=== PATIENT | female | born 1995 | race Hispanic/Latino ===

== ENCOUNTER 2016-07-28 08:44 | Emergency (ER) | payer OTHER ==
[~2016-07-28] VITALS: Ht 160 cm; Wt 59.5 kg
[2016-07-28 08:47] VITALS: BP 113/67; PULSE 89; RESP 18; O2SAT 100
--- NOTE | 2016-07-28 09:01 | ED.REPORT ---
HPI-General Illness Date of Service Jul 28, 2016 ED Provider: MD Stephen This is a 21 year old female presenting to the ED complaining of cold symptoms that began 2 weeks ago. Reports rhinorrhea, nasal congestion, and cough. Cough resolved, however, 5 days ago she developed generalized myalgias, severe sore throat, headache, and intermittent fever. Denies diarrhea, dysuria, abdominal pain, or vomiting. Father recently tested positive for influenza, sister recently treated for strep throat. Nursing Notes Stated Complaint: HEADACHE,ABD PAIN,SWOLLEN TONSILS Chief Complaint: FLU/Cold Symptoms Nursing Notes Reviewed: Yes Allergies: Coded Allergies: No Known Allergies (Verified Allergy, Unknown, 10/17/15) General Time Seen by MD: 09:01 Chief Complaint Not feeling well Hx Obtained From: Patient Arrived By: Walk-in Sudden in Onset?: Yes Onset Occurred: More than a week ago... (2 weeks) Symptom Duration: Since onset Severity: Current: No pain currently Pertinent Negative: Pt denies other symptoms Recent Healthcare: No recent doctor visit, No recent hospitalization Similar Sx Previous: No Past Medical History Past Medical History None Past Surgical History None Smoking History Never Smoker Social History Alcohol Use: "Social" Drug Use: THC Ambulatory Status Independent Review of Systems Full Review of Systems Constitutional: Reports: Chills, Fever Ears / Nose / Throat: Reports: Sore throat Respiratory: Denies: Non-productive cough, Shortness of breath GI: Denies: Abdominal pain, Constipation, Diarrhea, Nausea, Vomiting Neurologic: Reports: Headache Complete sys rev & neg: except as marked. Physical Exam Vital Signs Vital Signs Date Time Temp Pulse Resp B/P Pulse Ox O2 Delivery O2 Flow Rate FiO2 07/28/16 08:47 38.1 89 18 113/67 100 Room Air Initial VS: Reviewed General/Constitutional: Well-developed, Well-nourished Head / Eyes: Atraumatic, Normocephalic, PERRL Neck: Supple, Non-tender, Full range of motion Respiratory: Breath sounds normal, Clear to auscultation, No respiratory distress Abdomen / GI: Soft, Non-tender, No guarding, No rebound, No distention Extremities: Vascular intact, Neuro intact, No swelling, No tenderness Skin: Warm, Dry, No cyanosis Neurologic: Alert, Oriented, Nonfocal Psychiatric: Mood/affect normal, Behavior normal, Normal thought content ENT: Mucous membranes moist Pharynx / Tonsils / Uvula: Positive: Tonsillar exudate L, Tonsillar exudate R, Tonsillar swelling L, Tonsillar swelling R Cardiovascular: Heart rate NL Heart Sounds / Murmur: Positive: Murmur present... (II/) Re-Eval/Medical Decision Counseled Regarding: Diagnosis, Lab results, Need for follow-up, When/why to return to ED Discharge & Departure Primary Impression: Strep throat Additional Impression: Heart murmur Disposition: Home Discharge Condition All VS Reviewed: Yes Condition: Stable Patient Instructions: Strep Throat (ED) Additional Instructions: Take penicillin, 250 mg, 3 times a day for 7 days. You may also take ibuprofen 800 mg every 8 hours and/or Tylenol 1000 mg every 6 hours as needed for pain and fever control. Be sure to consume frequent fluids and take adequate rest. Seek care with a primary care provider for further evaluation of your heart murmur. Call today to schedule an appointment. Return to the emergency department for any new or worsening symptoms such as difficulty swallowing. Referrals: NOPCP (PCP) Scribe Attestation Portions of this note were transcribed by Cristian Skinner. I, Dr. Mitchell personally performed the history, physical exam and medical decision-making; I reviewed and confirmed the accuracy of the information in the transcribed note. Signed by: tamika Singh. 07/28/2016, 10:00. Maged Mitchell MD Jul 28, 2016 09:01 CRISTIAN SKINNER Jul 28, 2016 09:14
[2016-07-28] MEDS ORDERED: PENI250T2 PO (09:18)
== END 2016-07-28 09:18 | disposition home or self-care (01) ==
LOC: SED 08:44
DX: J02.0 Streptococcal pharyngitis (principal); R01.1 Cardiac murmur, unspecified